=== PATIENT | male | born 1960 | race Caucasian/White ===

== ENCOUNTER → 2016-12-12 | Outpatient (CLI) | payer MEDICARE ==
[~2016-12-12] MED LIST: DILANTIN PO; KEPPRA250 MG PO; LINZESS145 MCG PO
== END | disposition home or self-care (01) ==
LOC: CLAB 12:22
PROVIDERS: Registered Nurse
DX: I72.8 Aneurysm of other specified arteries (principal)
CPT/HCPCS: 36415; 82565; 84520

== ENCOUNTER → 2016-12-19 | Outpatient (CLI) | payer MEDICARE ==
--- NOTE | ~2016-12-19 | CT13 ---
[facility] A Service of [facility] & [facility] RADIOLOGY TEXT RESULTS PATIENT: SERENITY PIERSON LOCATION: [facility] : 64 UNIT #: [id number] AGE: [address]: Miladis Castaneda SEX: M ORDER DR: [id number] [facility] [address] [place], [place] [address] [id number] O MR#: [id number] [facility] #: [id number] NAME: SERENITY PIERSON : 1960 SEX: M STUDY DATE/TIME: 12/19/2016 11:13 UNIT: [facility] ROOM: STUDY DESCRIPTION: CT Angio Abdomen Attending Physician: Miladis Castaneda A.P.R.N. Referring Physician: Miladis Castaneda A.P.R.N. Ordering Physician: Miladis Castaneda A.P.R.N. Primary Care Physician: Daren Lopez M.D. MEDICAL IMAGING REPORT This report is preliminary unless electronic signature is present EXAM CT abdomen with angiographic reconstructions INDICATION Follow up splenic artery aneurysm. COMPARISON 12/19/2015, 06/14/2015. TECHNIQUE The patient was given 100 mL of Isovue 370. Spiral imaging was performed through the abdomen. 3-D reconstructions of the arterial structures were generated. This CT examination was performed with one or more of the following radiation dose reduction techniques: automatic exposure control, adjustment of mA and/or kV according to patient size, and iterative reconstruction. FINDINGS Lung bases are clear. The liver contains a simple cyst in the left lobe measuring about 2.5 cm in diameter. It is unchanged from the prior study. The spleen, right adrenal gland and kidneys appear normal. Patient apparently had a large splenic artery aneurysm that is treated with coil therapy and this creates a great deal of streak artifact through the images and obscures much of the pancreas and the left adrenal gland. The visualized portion of the splenic artery aneurysm appears thrombosed. Measurement is difficult due to the streak artifact but the aneurysm seems to be at least 4.6 cm in diameter which is unchanged from the prior study. The aorta is normal in size. There is no adenopathy. The bowel is normal. The bones show degenerative change in the lumbar spine with marked disc space narrowing at L5-S1. 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 There seem to be at least 1 if not 2 other additional splenic artery aneurysms. The 1 near the splenic hilum is 17 mm in STS. [facility] A Service of [facility] & [facility] RADIOLOGY TEXT RESULTS PATIENT: SERENITY PIERSON LOCATION: [facility] : 64 UNIT #: [id number] AGE: [address]: Miladis Castaneda SEX: M ORDER DR: diameter and the 1 between the kidney and the spleen is about 13 mm in diameter. They have not changed significantly since the prior study. IMPRESSION 1. 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 There is no evidence of opacification of the visualized portion of the aneurysm. 2. Two smaller more distal aneurysms are stable from 12/19/2015. 3. Otherwise, the study is negative, stable and unchanged from the prior study. Otherwise, the study is unremarkable. Dictated by... Brock Jimenez M.D. THIS IS AN ELECTRONICALLY VERIFIED REPORT Brock Jimenez M.D. at 12/20/2016 4:09 PM SAWYER/colby TD: 12/20/2016 12:53 JOB #: [id number] MEDICAL IMAGING REPORT Page 1 of 1 COPY
== END | disposition home or self-care (01) ==
LOC: CCAT 10:18
DX: I72.8 Aneurysm of other specified arteries (principal)
CPT/HCPCS: 74175; Q9967